=== PATIENT | female | born 1945 | race Hispanic/Latino ===

== ENCOUNTER 2021-03-05 13:16 | Emergency (ER) | payer OTHER, MEDICARE ==
[~2021-03-05] VITALS: Ht 149.9 cm; Wt 63.0 kg
[2021-03-05] MEDS ORDERED: DICL25TA9 PO (14:29)
[2021-03-05] MEDS ORDERED: DOXY-336 PO (14:29)
[2021-03-05 14:46] VITALS: BP 150/88
== END 2021-03-05 14:49 | disposition home or self-care (01) ==
LOC: EDH 13:16
DX: M70.22 Olecranon bursitis, left elbow (principal); I10 Essential (primary) hypertension; E10.9 Type 1 diabetes mellitus without complications
CPT/HCPCS: 73080

== ENCOUNTER 2022-04-02 12:29 | Emergency (ER) | payer OTHER, MEDICARE ==
[~2022-04-02] VITALS: Ht 157.5 cm; Wt 59.0 kg
[~2022-04-02 12:29] MED LIST: DICL25TA9 PO; DOXY-469 PO
[2022-04-02 13:09] LABS: BASOPHILS % (AUTO) 0.1 % (0.0-5.0); EOSINOPHILS % (AUTO) 0.1 % (0.0-8.0); LYMPHOCYTES % (AUTO) 6.8 % (21.0-51.0); MEAN CORPUSCULAR HEMOGLOBIN 29.6 pg (27.0-33.0); MEAN CORPUSCULAR HGB CONC 33.5 g/dL (32.0-36.0); MEAN CORPUSCULAR VOLUME 88.5 fL (79-99); NEUTROPHILS % (AUTO) 91.7 % (40.0-77.0); PLATELET COUNT (AUTO) 356 K/uL (130-400); RED BLOOD CELL COUNT(AUTO) 4.86 MIL/uL (4.00-5.50); RED CELL DISTRIBUTION WIDTH 12.7 % (11.0-15.5); WHITE BLOOD COUNT (AUTO) 13.9 K/uL (4.8-10.8)
[2022-04-02 13:16] LABS: CREATININE 0.7 mg/dL (0.5-1.5); POTASSIUM 3.4 mmol/L (3.5-5.1)
[2022-04-02 13:20] LABS: APPEARANCE,URINE CLEAR (CLEAR); BILIRUBIN,URINE NEGATIVE (NEGATIVE); COLOR,URINE LIGHT-YELLOW (YELLOW); GLUCOSE, URINE (UA) 150 mg/dL (NEGATIVE); KETONES,URINE NEGATIVE (NEGATIVE); LEUKOCYTE ESTERASE ,URINE NEGATIVE Leu/uL (NEGATIVE); NITRATE,URINE NEGATIVE (NEGATIVE); OCCULT BLOOD,URINE NEGATIVE (NEGATIVE); PROTEIN,URINE NEGATIVE (NEGATIVE); UROBILINOGEN,URINE 0.2 mg/dL (0.2-1.0)
[2022-04-02 13:22] LABS: MUCUS,URINE RARE LPF (None Seen); RBC,URINE 0-1 /HPF (0-1); SQUAMOUS EPITHELIAL CELL,UR RARE /HPF (0-2); WBC,URINE 0-1 /HPF (0-1)
[2022-04-02 13:22] LABS: INR 0.93 (0.85-1.15); PROTHROMBIN TIME 9.9 SEC (9.6-11.6)
[2022-04-02 13:27] LABS: TOTAL PROTEIN, SERUM 7.8 g/dL (6.0-8.3)
[2022-04-02 14:15] LABS: B-TYPE NATRIURETIC PEPTIDE 49 pg/mL (0-100)
[2022-04-02] MEDS ORDERED: 0.9%NACL 1000ML 1,000 ML IV ONE (15:00)
[2022-04-02 16:41] VITALS: BP 159/100
== END 2022-04-02 16:42 | disposition home or self-care (01) ==
LOC: EDH 12:29
DX: M54.9 Dorsalgia, unspecified (principal); T41.45XA Adverse effect of unspecified anesthetic, initial encounter; I11.9 Hypertensive heart disease without heart failure; E11.9 Type 2 diabetes mellitus without complications; Z90.710 Acquired absence of both cervix and uterus; Z98.890 Other specified postprocedural states
CPT/HCPCS: 99285; 96360; 71045; 82550; 83874; 84484 ×2; 80053; 83880; 85025; 85610; 85730; 82948 ×2; 81001; 36415; 93005; J7030

== ENCOUNTER 2022-04-04 16:57 | Inpatient (IN) | payer OTHER, MEDICARE ==
[~2022-04-04] VITALS: Ht 152.4 cm; Wt 61.4 kg
[2022-04-04 20:08] LABS: BASOPHILS % (AUTO) 0.3 % (0.0-5.0); EOSINOPHILS % (AUTO) 0.1 % (0.0-8.0); HEMATOCRIT 37.5 % (36-48); LYMPHOCYTES % (AUTO) 7.8 % (21.0-51.0); MEAN CORPUSCULAR HEMOGLOBIN 29.8 pg (27.0-33.0); MEAN CORPUSCULAR HGB CONC 33.6 g/dL (32.0-36.0); MEAN CORPUSCULAR VOLUME 88.7 fL (79-99); MONOCYTES % (AUTO) 4.2 % (3.0-13.0); NEUTROPHILS % (AUTO) 87.2 % (40.0-77.0); PLATELET COUNT (AUTO) 309 K/uL (130-400); RED BLOOD CELL COUNT(AUTO) 4.23 MIL/uL (4.00-5.50); RED CELL DISTRIBUTION WIDTH 12.9 % (11.0-15.5); WHITE BLOOD COUNT (AUTO) 15.8 K/uL (4.8-10.8)
[2022-04-04 20:20] LABS: CREATININE 0.8 mg/dL (0.5-1.5); POTASSIUM 3.3 mmol/L (3.5-5.1)
[2022-04-04 20:22] LABS: INR 0.94 (0.85-1.15); PROTHROMBIN TIME 10.3 SEC (9.6-11.6)
[2022-04-04 20:23] LABS: PARTIAL THROMBOPLASTIN TIME 26.8 SEC (26.3-35.5)
[2022-04-04 20:25] LABS: TOTAL PROTEIN, SERUM 7.2 g/dL (6.0-8.3)
[2022-04-04] MEDS ORDERED: MORPHINE 4 MG SYG IVP ONE (21:00)
[2022-04-04] MEDS ORDERED: ONDANSETRON 4MG INJ IVP ONE (21:00)
[2022-04-04] MEDS ORDERED: HYDROMORPHONE 0.5 MG SYG (0.5MG/0.5ML) IVP ONE (23:30)
[2022-04-04] MEDS ORDERED: HYDROMORPHONE 0.5 MG SYG (0.5MG/0.5ML) ONE (23:31)
[2022-04-05] VITALS (24 sets, daily range): BP systolic 116–228; BP diastolic 62–109
[2022-04-05] MEDS ORDERED: POTASSIUM CHLORIDE 20MEQ/100ML 100 ML IV PRN
[2022-04-05] MEDS ORDERED: GUAIFENESIN-DM 200/20 MG 10 ML PO PRN
[2022-04-05] MEDS ORDERED: MORPHINE 2 MG SYG IV PRN
[2022-04-05] MEDS ORDERED: MAGNESIUM 2GM PREMIX 50ML 50 ML IV PRN
[2022-04-05] MEDS ORDERED: LIDOCAINE HCL-MPF 1% 2ML VIAL IV PRN
[2022-04-05] MEDS ORDERED: POTASSIUM CHLORIDE 10% ELIXIR 20 MEQ/15 ML UDCUP PO PRN
[2022-04-05] MEDS ORDERED: ACETAMINOPHEN 325 MG TAB PO PRN ×2
[2022-04-05] MEDS ORDERED: ONDANSETRON 4MG INJ IV PRN
[2022-04-05] MEDS: DOXYCYCLINE 100MG+NS 250ML 250 ML IV SCH ×2 (00:36→12:30)
[2022-04-05] MEDS: CEFTRIAXONE 1G VIAL IV SCH (00:36)
[2022-04-05] MEDS: LACTATED RINGERS 1000ML 1,000 ML IV SCH (00:36)
[2022-04-05] MEDS ORDERED: LORAZEPAM 0.5 MG TABLET PO ONE (01:00)
[2022-04-05] MEDS ORDERED: PHARMACY COMMUNICATION MISC SCH (01:00)
[2022-04-05] MEDS: KCL 20 MEQ ERTAB PO PRN (01:21)
[2022-04-05] MEDS: MORPHINE 4 MG SYG IV PRN ×2 (01:22→05:31)
[2022-04-05 04:20] LABS: BASOPHILS % (AUTO) 0.1 % (0.0-5.0); HEMATOCRIT 40.5 % (36-48); LYMPHOCYTES % (AUTO) 7.3 % (21.0-51.0); MEAN CORPUSCULAR HEMOGLOBIN 29.9 pg (27.0-33.0); MEAN CORPUSCULAR HGB CONC 33.3 g/dL (32.0-36.0); MEAN CORPUSCULAR VOLUME 89.8 fL (79-99); MONOCYTES % (AUTO) 5.2 % (3.0-13.0); NEUTROPHILS % (AUTO) 86.8 % (40.0-77.0); PLATELET COUNT (AUTO) 309 K/uL (130-400); RED BLOOD CELL COUNT(AUTO) 4.51 MIL/uL (4.00-5.50); RED CELL DISTRIBUTION WIDTH 12.8 % (11.0-15.5); WHITE BLOOD COUNT (AUTO) 14.5 K/uL (4.8-10.8)
[2022-04-05 04:48] LABS: CREATININE 0.5 mg/dL (0.5-1.5); MAGNESIUM 1.8 mg/dL (1.80-2.40); PHOSPHORUS 4.2 mg/dL (2.5-4.9)
[2022-04-05 05:06] LABS: HEMOGLOBIN A1C 8.2 % (4.0-6.0)
[2022-04-05] MEDS: INSULIN HUMULIN R 100 UNIT/ML 3ML SQ SCH ×4 (06:42→21:00)
[2022-04-05] MEDS: ENOXAPARIN SODIUM 40 MG/0.4 ML SYRINGE SQ SCH (09:00)
[2022-04-05] MEDS: HYDROMORPHONE 1 MG INJ IVP PRN ×4 (09:02→15:59)
[2022-04-05] MEDS: FAMOTIDINE 20MG VIAL IV SCH (09:30)
[2022-04-05] MEDS: HYDRALAZINE 20MG/ML VIAL IV PRN ×2 (09:30→21:02)
[2022-04-05] MEDS ORDERED: SUCCINYLCHOLINE 200MG/10ML SYR ONE (18:09)
[2022-04-05] MEDS ORDERED: FENTANYL CITRATE PF 50 MCG/1 ML 2ML VIAL ONE (18:09)
[2022-04-05] MEDS ORDERED: PROPOFOL 10 MG/ML 20ML VIAL IV ONE (18:09)
[2022-04-05] MEDS ORDERED: LIDOCAINE PF 100MG/5ML (2%) SYRINGE 5ML ONE (18:09)
[2022-04-05] MEDS ORDERED: MEPERIDINE-PF 25 MG/ML SYG ONE (18:39)
[2022-04-05] MEDS ORDERED: ATOR10 PO (20:59)
[2022-04-05] MEDS ORDERED: TRAM50TA4 PO (20:59)
[2022-04-05] MEDS ORDERED: LOSA25TA41 PO (20:59)
[2022-04-06] MEDS: MORPHINE 4 MG SYG IV PRN ×2 (00:11→04:17)
[2022-04-06] MEDS: DOXYCYCLINE 100MG+NS 250ML 250 ML IV SCH ×2 (00:12→11:51)
[2022-04-06] MEDS: CEFTRIAXONE 1G VIAL IV SCH ×2 (00:12→23:35)
[2022-04-06] MEDS: LACTATED RINGERS 1000ML 1,000 ML IV SCH (00:18)
[2022-04-06 04:21] LABS: HEMATOCRIT 37.7 % (36-48); MEAN CORPUSCULAR HEMOGLOBIN 28.9 pg (27.0-33.0); MEAN CORPUSCULAR HGB CONC 32.4 g/dL (32.0-36.0); MEAN CORPUSCULAR VOLUME 89.3 fL (79-99); RED BLOOD CELL COUNT(AUTO) 4.22 MIL/uL (4.00-5.50); RED CELL DISTRIBUTION WIDTH 12.9 % (11.0-15.5); WHITE BLOOD COUNT (AUTO) 12.3 K/uL (4.8-10.8)
[2022-04-06 04:29] LABS: CREATININE 0.6 mg/dL (0.5-1.5); POTASSIUM 3.3 mmol/L (3.5-5.1)
[2022-04-06 05:00] VITALS: BP 149/68
[2022-04-06] MEDS: INSULIN HUMULIN R 100 UNIT/ML 3ML SQ SCH ×5 (07:30→21:00)
[2022-04-06 08:00] VITALS: BP 149/69
[2022-04-06] MEDS: ENOXAPARIN SODIUM 40 MG/0.4 ML SYRINGE SQ SCH (09:05)
[2022-04-06] MEDS: FAMOTIDINE 20MG VIAL IV SCH (09:05)
[2022-04-06] MEDS: HYDROMORPHONE 1 MG INJ IVP PRN ×2 (09:06→19:47)
[2022-04-06] MEDS: KCL 20 MEQ ERTAB PO PRN ×3 (09:07→14:16)
[2022-04-06 12:00] VITALS: BP 155/98
[2022-04-06] MEDS ORDERED: ACETAMINOPHEN WITH CODEINE 1 TAB TAB PO PRN (12:30)
[2022-04-06] MEDS ORDERED: BISACODYL 10 MG SUPP.RECT RC SCH (12:30)
[2022-04-06] MEDS: ACETAMINOPHEN WITH CODEINE 1 TAB TAB PO PRN (14:16)
[2022-04-06 16:00] VITALS: BP 164/84
[2022-04-06] MEDS: DOCUSATE SODIUM 100 MG CAP PO SCH (19:54)
[2022-04-06] MEDS: BISACODYL 5 MG TABLET.DR PO SCH (19:54)
[2022-04-06 20:00] VITALS: BP 157/87
[2022-04-06] MEDS ORDERED: ATORVASTATIN 10 MG TABLET PO SCH (21:00)
[2022-04-06] MEDS: TRAMADOL HCL 50 MG TABLET PO PRN (21:35)
[2022-04-07] VITALS: BP 151/98
[2022-04-07] MEDS: DOXYCYCLINE 100MG+NS 250ML 250 ML IV SCH ×2 (00:04→12:00)
[2022-04-07 04:00] VITALS: BP 166/98
[2022-04-07] MEDS: HYDRALAZINE 20MG/ML VIAL IV PRN (04:08)
[2022-04-07] MEDS: HYDROMORPHONE 1 MG INJ IVP PRN (04:33)
[2022-04-07] MEDS: TRAMADOL HCL 50 MG TABLET PO PRN (05:21)
[2022-04-07 05:30] VITALS: BP 158/70
[2022-04-07 05:33] LABS: HEMATOCRIT 36.8 % (36-48); MEAN CORPUSCULAR HEMOGLOBIN 29.3 pg (27.0-33.0); MEAN CORPUSCULAR HGB CONC 32.9 g/dL (32.0-36.0); MEAN CORPUSCULAR VOLUME 89.1 fL (79-99); RED BLOOD CELL COUNT(AUTO) 4.13 MIL/uL (4.00-5.50); WHITE BLOOD COUNT (AUTO) 9.5 K/uL (4.8-10.8)
[2022-04-07 05:58] LABS: BILIRUBIN,DIRECT 0.1 mg/dL (0.0-0.3); CREATININE 0.6 mg/dL (0.5-1.5); CRP QUANTITATIVE 29.3 mg/L (0.00-9.0); MAGNESIUM 1.7 mg/dL (1.80-2.40); TOTAL PROTEIN, SERUM 6.2 g/dL (6.0-8.3)
[2022-04-07] MEDS: INSULIN HUMULIN R 100 UNIT/ML 3ML SQ SCH ×3 (06:27→17:25)
[2022-04-07] MEDS ORDERED: 0.9%NACL 1000ML 1,000 ML IV SCH (06:30)
[2022-04-07 08:00] VITALS: BP 122/79
[2022-04-07] MEDS: BISACODYL 5 MG TABLET.DR PO SCH (08:57)
[2022-04-07] MEDS: DOCUSATE SODIUM 100 MG CAP PO SCH (08:57)
[2022-04-07] MEDS: FAMOTIDINE 20MG VIAL IV SCH (08:58)
[2022-04-07] MEDS: ACETAMINOPHEN WITH CODEINE 1 TAB TAB PO PRN (08:58)
[2022-04-07] MEDS: ENOXAPARIN SODIUM 40 MG/0.4 ML SYRINGE SQ SCH (08:59)
[2022-04-07] MEDS ORDERED: LOSARTAN 25 MG TABLET PO SCH (09:00)
[2022-04-07 12:00] VITALS: BP 143/75
[2022-04-07 16:00] VITALS: BP 162/80
== END 2022-04-07 18:10 | disposition home or self-care (01) | DRG 562 ==
LOC: EDH 16:57 → EDHIP 23:45 → 4CH 04-05 02:10
PROVIDERS: ADMIT Student in an Organized Health Care Education/Training Program; ATTEND Student in an Organized Health Care Education/Training Program
PROC: 0RSJXZZ Reposition Right Shoulder Joint, External Approach (ICD-10-PCS; principal; 2022-04-05 18:07)
DX: S43.014A Anterior dislocation of right humerus, initial encounter (principal); J18.9 Pneumonia, unspecified organism; S06.0X1A Concussion with loss of consciousness of 30 minutes or less, initial encounter; Z20.822 Contact with and (suspected) exposure to COVID-19; E87.6 Hypokalemia; S82.832A Other fracture of upper and lower end of left fibula, initial encounter for closed fracture; M19.041 Primary osteoarthritis, right hand; M47.812 Spondylosis without myelopathy or radiculopathy, cervical region; E11.65 Type 2 diabetes mellitus with hyperglycemia; K59.00 Constipation, unspecified; E78.00 Pure hypercholesterolemia, unspecified; Z96.651 Presence of right artificial knee joint; I10 Essential (primary) hypertension; W18.39XA Other fall on same level, initial encounter; Z98.84 Bariatric surgery status; Z95.0 Presence of cardiac pacemaker; Z90.710 Acquired absence of both cervix and uterus; Z86.73 Personal history of transient ischemic attack (TIA), and cerebral infarction without residual deficits; Y93.89 Activity, other specified; Y92.89 Other specified places as the place of occurrence of the external cause; Y99.8 Other external cause status
CPT/HCPCS: 36415; 70450; 71045; 72125; 73030; 73060; 73090; 73120; 73562; 73590; 80048; 80053; 80076; 81001; 82550; 82948; 83036; 83605; 83735; 83874; 83880; 84100; 84145; 84484; 85025; 85027; 85610; 85730; 86140; 86850; 86900; 86901; 87040; 87635; 93005; 96360; 96374; 96375; 97039; A4565; G0378; J0330; J0696; J1170; J1650; J1815; J2001; J2175; J2270; J2405; J2704; J3010; J3475; J3490; J7030; J7120